=== PATIENT | female | born 1980 | race Caucasian/White ===

== ENCOUNTER 2024-12-15 06:06 | Observation (INO) ==
--- NOTE | 2024-11-29 09:02 | PAT Medication Instructions ---
Medication Instructions Date of Service November 29, 2024 Home Medications albuterol sulfate 0.63 mg/3 mL solution for nebulization 0.63 mg inhalation Q4H PRN sob albuterol sulfate 90 mcg/actuation aerosol inhaler (Ventolin HFA) 2 puff inhalation QID PRN sob fexofenadine 180 mg tablet 180 mg PO HS hydrochlorothiazide 25 mg tablet 25 mg PO QAM losartan 100 mg tablet 100 mg PO QAM megestrol 40 mg tablet 40 mg PO TID montelukast 10 mg tablet (Singulair) 10 mg PO HS omeprazole 20 mg capsule,delayed release 20 mg PO QAM ASK your prescriber and surgeon megestrol 40 mg tablet 40 mg PO TID DO NOT take the morning of surgery hydrochlorothiazide 25 mg tablet 25 mg PO QAM losartan 100 mg tablet 100 mg PO QAM Take morning of surgery With a small sip of water, OTHERWISE NOTHING TO EAT OR DRINK AFTER MIDNIGHT: albuterol sulfate 0.63 mg/3 mL solution for nebulization 0.63 mg inhalation Q4H PRN sob (if needed) albuterol sulfate 90 mcg/actuation aerosol inhaler (Ventolin HFA) 2 puff inhalation QID PRN sob (use if needed; please bring rescue inhaler with you to hospital day of surgery if possible) omeprazole 20 mg capsule,delayed release 20 mg PO QAM Take evening before surgery albuterol sulfate 0.63 mg/3 mL solution for nebulization 0.63 mg inhalation Q4H PRN sob (if needed) albuterol sulfate 90 mcg/actuation aerosol inhaler (Ventolin HFA) 2 puff inhalation QID PRN sob (if needed) fexofenadine 180 mg tablet 180 mg PO HS montelukast 10 mg tablet (Singulair) 10 mg PO HS Other Notes If you have any questions please call us at [phone] or [phone] or [phone] or [phone]
--- NOTE | 2024-12-01 09:22 | Anesthesiology Consultation ---
Date of Service December 01, 2024 Assessment & Plan (1) Encounter for pre-operative examination: Chart Review Chart Review: Acceptable Risk for Surgery and Patient seen in Pre Admission Testing - Check BSG AM DOS - Check test AM DOS - Wipes not give at PAT appt 12/01/24- did speak with patient after appt and will mail wipes to use before and after Per [facility] appt on 12/01/24, no recent illness/disease exposures, illness related symptoms, or recent illness/disease positive tests. Will leave to surgeon's discretion if preop Covid testing needed Teaching & Discussion Pre-Anesthesia Teaching/Discussion Notes: Instructed NPO after midnight before surgery,except medications with 15 cc of water. Medication instructions provided according to the [facility] guidelines. History Surgery Operation Date: 12/15/24 07:00 Proposed Procedures p Robotic Assisted Total Laparoscopic Hysterectomy, Bilateral Salpingectomy and Cystoscopy - Ann Dye MD Height/Weight Height: 5 ft 3 in Weight: 156.4 kg Allergies Allergy/AdvReac Type Severity Reaction Status Date / Time fentanyl Allergy Severe burning Verified 11/28/24 14:26 sensation head to toe with nausea EYD Inhibitors Allergy Mild Cough Verified 11/28/24 14:26 Sulfa (Sulfonamide Allergy Unknown unsure of Verified 11/28/24 14:26 Antibiotics) reaction>mother allergic to sulfa Medications Home Medications Medication Instructions Recorded Confirmed Last Taken albuterol sulfate 0.63 mg/3 mL 0.63 mg inhalation Q4H PRN sob 11/28/24 11/28/24 Unknown solution for nebulization albuterol sulfate 90 mcg/actuation 2 puff inhalation QID PRN sob 11/28/24 11/28/24 Unknown aerosol inhaler (Ventolin HFA) fexofenadine 180 mg tablet 180 mg PO HS 11/28/24 11/28/24 Unknown hydrochlorothiazide 25 mg tablet 25 mg PO QAM 11/28/24 11/28/24 Unknown losartan 100 mg tablet 100 mg PO QAM 11/28/24 11/28/24 Unknown megestrol 40 mg tablet 40 mg PO TID 11/28/24 11/28/24 Unknown montelukast 10 mg tablet 10 mg PO HS 11/28/24 11/28/24 Unknown (Singulair) omeprazole 20 mg capsule,delayed 20 mg PO QAM 11/28/24 11/28/24 Unknown release loratadine 10 mg tablet (Claritin) 10 mg PO PM 12/01/24 12/01/24 Unknown Past Medical History Medical History Asthma exercised and allergy induced breathing stable currently (mild allergy symptoms recently) Depression no meds Environmental and seasonal allergies GERD (gastroesophageal reflux disease) Well controlled with medication H/O benign breast biopsy right (no anesthesia) Hypertension Osteoarthritis Prediabetes - Hgb A1C 7.1 on 11/08/24- was on Metformin and Ozempic in the past but has been without medications x months - Patient aware and will be working with PCP to get on medications (pt knows not to start Ozempic until after surgery) Sleep apnea cpap Exercise / Class Metabolic Activity II 4-5 Yardwork/Stairs/Walk up hill (one flight of stairs - no chest pain or SOB ) Past Family History Family History Other No family history of adverse response to anesthesia Past Surgical History Surgical History H/O nasal septoplasty History of carpal tunnel release right/left History of dilatation and curettage (2022) History of tooth extraction [place] teeth removed Past Anesthesia History No Hx of Anesthesia Complications (with exception of feeling hot and cold post op ) and No Family Hx of Anesthesia Complications History of PONV No Hx of PONV (only PONV with Fentanyl in the past ) and No Hx of Motion Sickness Social History Smoking Status: Current every day smoker Smoking cigarettes per day: 10 cig daily>advised Do You Dip or Chew Tobacco: No Hx Alcohol Use: No substance use type: does not use Review of Systems - Chronic cough- secondary to asthma - stable (feels secondary chronic post nasal drip) Patient denies chest pain, shortness of breath, dyspnea on exertion, wheezing, palpitations. No hx of seizures, stroke, CT. No hx of blood clots or blood transfusions Physical Exam Vital Signs VITALS BP 156/82 P 83 TEMP 98.2 SP02 98% RESP 16 Constitutional no acute distress ENMT Mouth: no TMJ clicking Thyromental Distance: > or= 3.5 Finger Breadths (3.5) Mallampati Class: I Missing side teeth Neck + short neck, + thick neck and + limited neck extension Respiratory normal respiratory effort; no respiratory distress Auscultation: lungs clear to auscultation bilaterally; no wheezes Cardiovascular Rate/Rhythm: regular rate and regular rhythm Heart Sounds: no murmur Vessels: no carotid bruit Musculoskeletal Spine: no pain with cervical ROM Extremities: extremities normal to inspection Psychiatric Orientation: alert Lab Results Anesthesia Preop Results Results Anesthesia Widget: WBC 9.45 K/ul (4.8-10.8) 12/01/24 Hgb 13.0 g/dl (12.0-16.0) 12/01/24 Hct 40.8 % (37.0-47.0) 12/01/24 Plt 253 K/uL (130-400) 12/01/24 Blood Type AB Positive 12/01/24 Antibody Screen NEGATIVE 12/01/24 Testing Laboratory Results 11/08/24= SODIUM: 143 POTASSIUM: 4.1 CHLORIDE: 106 CO2: 25 BUN: 14 CREATININE: 0.7 GLUCOSE: 109 HGB A1C: 7.1 Electrocardiogram Date: 12/01/24 Findings: + NSR @ (86bpm) Low voltage QRS Chest X-Ray Date: 09/26/24 Low lung volumes. No acute focal consolidation. No pulmonary edema. No pneumothorax or pleural effusion observed. Unremarkable cardiomediastinal silhouette. No acute osseous abnormality.
[2024-12-15] MEDS ORDERED: PROPOFOL IV EMULSION 10 MG/ML 20 ML VIAL IV ONE ×2 (06:32→06:42)
[2024-12-15] MEDS ORDERED: LIDOCAINE 2% 2 ML VIAL/AMP(20MG/ML) INFIL ONE (06:32)
[2024-12-15] MEDS ORDERED: ROCURONIUM BROMIDE 10 MG/ML 5 ML VIAL IV ONE ×2 (06:32→07:48)
[2024-12-15] MEDS ORDERED: MIDAZOLAM HCL 1 MG/ML 2ML VIAL ONE (06:32)
[2024-12-15] MEDS ORDERED: fentaNYL citrate PF 100 MCG/2 ML VIAL ONE (06:33)
[2024-12-15 06:35] LABS: Basophils # (auto) 0.03 K/uL (0.00-0.20); Basophils % (auto) 0.3 %; Eosinophils # (auto) 0.22 K/uL (0.00-0.50); Eosinophils % (auto) 1.9 %; Hematocrit (blood only) 41.1 % (37.0-47.0); Hemoglobin 13.2 g/dl (12.0-16.0); Immature Granulocytes # (auto) 0.07 K/uL (0.01-0.20); Immature Granulocytes % (auto) 0.6 %; Lymphocytes # (auto) 4.38 K/uL (1.20-3.40); Lymphocytes % (auto) 38.3 %; Mean Corpuscular Hemoglobin 26.8 pg (25.0-34.0); Mean Corpuscular Hgb Conc 32.1 g/dL (32.0-36.0); Mean Corpuscular Volume 83.5 fL (80.0-100.0); Mean Platelet Volume 10.4 fL (9.4-12.4); Monocytes # (auto) 0.48 K/uL (0.11-0.59); Monocytes % (auto) 4.2 %; Neutrophils # (auto) 6.27 K/uL (1.40-6.50); Neutrophils % (auto) 54.7 %; Platelet Count 267 K/uL (130-400); RDW Standard Deviation 39.2 fL (36.4-46.3); Red Blood Count 4.92 M/uL (4.20-5.40); White Blood Count 11.45 K/ul (4.8-10.8)
[2024-12-15] MEDS: LR 15ML/HR IV SCH (06:49)
[2024-12-15] MEDS: LACTATED RINGER'S 1,000 ML IV SCH (06:49)
[2024-12-15] MEDS ORDERED: ONDANSETRON INJ 2 MG/ML 2 ML VIAL IV PRN (06:51)
[2024-12-15] MEDS ORDERED: ATROPINE SULFATE 0.1 MG/ML 10ML SYR IV PRN (06:51)
[2024-12-15] MEDS ORDERED: PROMETHAZINE HCL 6.25 MG in SODIUM CHLORIDE 0.9% 50 ML IV PRN (06:51)
[2024-12-15] MEDS ORDERED: HYDROmorphone INJ 2 MG/ML SYR/VIAL ONE (06:52)
[2024-12-15 06:55] LABS: Potassium 3.8 mmol/L (3.5-5.1)
--- NOTE | 2024-12-15 07:19 | History & Physical Bridge Note ---
Date of Service December 15, 2024 History & Physical Bridge Note I have examined the patient, reviewed the History & Physical and in the interval since the performance of the History & Physical I have noted the following changes of clinical significance: no changes noted
[2024-12-15] MEDS: ceFAZolin 3000MG 3,000 MG/72.5 ML BAG IV SCH (07:26)
[2024-12-15] MEDS ORDERED: DEXAMETHASONE SOD INJ 4 MG/ML VIAL ONE (07:48)
[2024-12-15] MEDS ORDERED: ONDANSETRON INJ 2 MG/ML 2 ML VIAL ONE (07:48)
[2024-12-15] MEDS ORDERED: DROPERIDOL 5 MG/2 ML VIAL ONE (07:49)
[2024-12-15] MEDS: metroNIDAZOLE 500 MG/100 ML BAG IV STA (08:19)
[2024-12-15] MEDS: BUPIVACAINE 0.5 % 5 MG/1 ML MPF 30ML VIAL ONE (09:00)
[2024-12-15] MEDS: TISSEEL FIBRIN SEALANT 10ML TOP ONE (09:00)
[2024-12-15] MEDS ORDERED: SUGAMMADEX SODIUM 200 MG/2 ML VIAL IV ONE (09:04)
[2024-12-15] MEDS: VASOPRESSIN 20 UNIT/ML VIAL ONE (09:18)
--- NOTE | 2024-12-15 09:32 | Post Operative Brief Note ---
Immediate Post Op Note Date of Surgery December 15, 2024 Pre & Post Diagnosis Operation Date: 12/15/24 07:30 Pre-Op Diagnosis: Endometrial Hyperplasia Post-Op Diagnosis: Endometrial Hyperplasia I identified the patient and participated in the time-out.: Yes Procedure Operation Date: 12/15/24 07:30 Actual Procedures p Robotic Assisted Total Laparoscopic Hysterectomy, Bilateral Salpingectomy, and Cystoscopy(Not Applicable) - Ann Dye MD Surgeon Ann Dye MD Director Hris ELISA Colon- Estimated Blood Loss 10 Findings Consistent with Post-Op Diagnosis Drains Montano Catheter (placed at start of case, to be removed at end of case 250mL)
--- NOTE | 2024-12-15 09:38 | Operative Report ---
Post Operative Report Pre & Post Diagnosis Operation Date: 12/15/24 07:30 Pre-Op Diagnosis: Endometrial Hyperplasia, Uterine fibroid Post-Op Diagnosis: Endometrial Hyperplasia, Uterine fibroid I identified the patient and participated in the time-out.: Yes Procedure Operation Date: 12/15/24 07:30 Actual Procedures p Robotic Assisted Total Laparoscopic Hysterectomy, Bilateral Salpingectomy, and Cystoscopy(Not Applicable) - Ann Dye MD Surgeon Ann Dye MD Bulb Brander ELISA Colon- Estimated Blood Loss 10 Findings See Below 1. 11 cm anteverted with uterus with a 10 cm posterior uterine fibroid 2. Normal appearing fallopian tubes and ovaries bilaterally 3. Anterior and posterior cul-de-sacs without lesions or adhesions 4. Lizbeth appearing liver edge 5. Appendix not visualized 6. On cystoscopy, normal appearing bladder dome which was free of suture or lesions 7. Brisk bilateral efflux of urine by the ureteral orifices visualized Fluids See Anesthesia Report Specimens Uterus (with fibroid), cervix, and bilateral fallopian tubes Drains Cano catheter removed at the end of the procedure. 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 Patient also with a enlarged fibroid uterus. Patient desires to proceed with a hysterectomy. Description of Procedure Under GA in the dorsal lithotomy position, the patient was prepped and draped in the usual sterile fashion. Beginning at the vagina, a cano catheter was inserted under sterile conditions and left in situ for the remainder of the case. A weighted speculum was then placed in the vagina and with the help of a right angle retractor the cervix was visualized and grasped anteriorly with a single tooth tenaculum.The uterus was sounded to11cm with a uterine sound.The cervical os was dilated up. An Advincula uterine manipulator was inserted. The weighted speculum was then removed. Attention was then turned to the abdomen. 0.5% marcaine solution was used for infiltration of all port sites. Beginning in the subumbilical area, the skin was first infiltrated with ~ 2 cc of themarcaine solution, then a8mm incision was made through the skin with a #11 blade. Direct entry with the robotic 8 mm trocar, sleeve, and 5 mm laparoscope was made into the peritoneal cavity.The opening pressure was <8 mmHg. The peritoneal cavity was insufflated with CO2 gas to a maximum pressure of 20 mmHg. Examination of the peritoneal cavity revealed no signs of injury from entry and the above notedanatomical structures. The patient was then placed in steep Trendelenburg and two [id number] robotictrocars were placed in a horizontal fashion.The interior design assistant port was placed in the RUQ with a 5 mm trocar.All trocars placed instandard technique, taking care to avoid the epigastric vessels. All trocars were placed under direct visualization with no inadvertent damage to underlying structures. The uterus was upheld from below and revealed a normal uterus, fallopian tubes andovaries. The [employer] robot was docked. Beginning on the left side, the fallopian tube was lifted towards the anterior abdominal wall to expose the mesosalpinx. Working from distal to proximal, the mesosalpinx was sequentially, clamped, ligated, and cut using the monopolar leelee and bipolar forceps hugging adjacent to tube from distal to proximal in the direction of the cornua. Once the cornua was reached the tube was ligated and cut and left freely hanging from the uterus to be removed as one specimen. Following this, the utero-ovarian ligament was clamped, sealed, and cut. The ovarian pedicle was the inspected to ensure there was no bleeding from the edges of mesosalpinx or from the stump of the utero-ovarian ligament. Attention was then turned to the other side. The same process was repeated on the right, sequentially clamping, ligating, and cutting the mesosalpinx being sure to not injure the adjacent ovarian tissue or other surrounding structures. The round ligament was then ligated and cut. Following this, the anterior leaf of the broad ligament was then taken down on the right side, dissecting down towards the peritoneal reflection at the base of the bladder and adjacent to the cervix. The same process was then repeated on the left side such that both sides met and the anterior leaflet had been appropriately skeletonized. Care was taken on both sides to avoid injuring the ovaries and to ensure the ureters were well visualized bilaterally. Once the bladder was appropriately dissected free from the lower anterior uterine segment and the tissues skeletonized, the uterine arteries were bilaterally clamped and ligated. Pedicles were checked and hemostatic. At the level of the ofthe uterine manipulator, the vaginal vault was incised circumferentially withthemonopolarshears. The uterus (with fibroid), cervix,and bilateralfallopian tubes weredelivered through the vagina using an 11 blade in a coring technique. All specimens were sent to pathology. Avaginal occluderwas then placed into the vagina to form a pneumatic seal and all the pedicles as well as the cuff edges were examined. Hemostasis was appreciated. The vaginal vault was then closed with a V-Loc barbed stitch being sure to avoid the bladder lateral pedicles. Following vault closure, an inspection of all areas was made to ensure hemostasis.Tisseal was placed along the vaginal cuffand adnexal regions. Hemostasiswasagain appreciated. The robot was undocked.All ports were removed under direct visualization and hemostasis noted. All the incision sites were then closed with 4-0 monocryl sutures in a subcuticular fashion and dermabond. The vaginal occluder and cano catheter were removed without incident. Cystoscopy was then performed. Normal appearing bladder dome which was free of suture or lesions was visualized. There was brisk bilateral efflux of urine by the ureteral orifices visualized. The bladder was drained and the cystoscope was removed without difficulty. At the end of the procedure, all sponges, instruments, and sharps were counted and correct. Estimated blood loss was 10ml. The patient was taken to recovery in stable condition. My Bulb Brander was necessary throughout the procedure for uterine manipulation, retraction, handling of the robot and robotic instruments to ensure adequate visualization, gentle tissue manipulation, and hemostasis. I attest to the content of the Intraoperative Record and any orders documented therein. Any exceptions are noted below.
[2024-12-15] MEDS: HYDROmorphone INJ 1 MG/ML SYRINGE IV PRN (10:05)
--- NOTE | 2024-12-15 10:34 | Anesthesiology Progress Note ---
Date of Service December 15, 2024 Anesthesia Post Procedure Vital Signs Vital Signs: Temp Pulse Pulse Resp BP Pulse Ox O2 Del Method 12/15/24 10:25 98 H 14 123/70 96 Oxymask 12/15/24 10:15 36.7 C 100 H 21 134/74 92 Oxymask 12/15/24 10:05 108 H 21 163/100 H 96 Oxymask 12/15/24 09:55 99 H 14 154/97 H 98 Oxymask 12/15/24 09:45 105 H 15 180/108 H 100 Oxymask 12/15/24 09:35 113 H 18 146/87 H 100 Oxymask 12/15/24 09:29 36.8 C 108 H 19 165/104 H 96 Oxymask 12/15/24 06:34 Room Air 12/15/24 06:20 36.8 C 92 H 22 167/86 H 96 Room Air O2 Flow Rate 12/15/24 10:25 2 12/15/24 10:15 2 12/15/24 10:05 2 12/15/24 09:55 5 12/15/24 09:45 5 12/15/24 09:35 5 12/15/24 09:29 5 12/15/24 06:34 12/15/24 06:20 Pain Intensity Abdomen: Pain Intensity: 4 Transfer of Care Handoff Completed per policy Notes Mental Status: alert / awake / arousable Patient Amnestic to Procedure: Yes Nausea / Vomiting: adequately controlled Pain: adequately controlled Airway Patency, RR, SpO2: stable & adequate BP & HR: stable & adequate Hydration State: stable & adequate Anesthetic Complications: no major complications apparent
[2024-12-15] MEDS ORDERED: ALBUTEROL HFA 8 GM INHALER INH PRN (11:44)
[2024-12-15] MEDS ORDERED: oxyCODONE HCL IR 5 MG TAB (IMMEDIATE RELEASE) PO PRN (11:44)
[2024-12-15] MEDS ORDERED: ALBUTEROL 0.083% NEBU SOLN 3 ML VIAL INH PRN (11:47)
[2024-12-15] MEDS ORDERED: Nursing to Pharmacy Communication SCH (12:00)
[2024-12-15] MEDS: SIMETHICONE 80 MG CHEW PO SCH (12:13)
[2024-12-15] MEDS: ACETAMINOPHEN 325 MG TAB PO SCH (12:13)
[2024-12-15] MEDS: IBUPROFEN 600 MG TAB PO SCH (12:14)
--- OUTSIDE RECORDS SUMMARY | 2024-12-15 12:25 | External Medical Summary | Summary of Care ---
Author Name Unknown Organization [facility] Address [address] [place] [address] Phone [phone] Care Team Providers Care Sales And Retail Management Recruiter Name Role Phone Cuco Smalls Primary Care Provider Encounter Details Date Type Department Care Team (Late st Contact Info) Description 12/01/2024 Orders Only Gynecology/Obstetrics [facility] [address] [place] [id number] Ann Dye MD [address] [place] [phone] Allergies Active Allergy Reactions Criticality Noted Date Comments Ramon Inhibitors Cough 06/15/2017 Fentanyl 07/12/2024 Sulfa Antibiotics 06/10/1999 Patient is unsure if she is allergic, mother is allergic documented as of this encounter (statuses as of 12/01/2024) Medications Albuterol Sulfate HFA 108 (90 Base) MCG/ACT Inhalation Aerosol SolutionIndicatio ns:Asthma, allergic, mild persistent, with acute exacerbation Inhale 2 Puffs by mouth 4 times a day. 18 g 3 Active Triamcinolone Acetonide 0.1 % External Ointment (Aristocort) Apply topically to affected area 2 times a day. To affected area for up to 2 weeks 30 g 2 3 Active CPAP every night at bedtime. Active Ventolin HFA 108 (90 Base) MCG/ACT Inhalation Aerosol SolutionIndicatio ns:Viral URI with cough Inhale 2 Puffs by mouth every 4 hours as needed for Wheezing or Shortness of Breath. 18 g 4 Active Fluocinonide 0.05 % External SolutionIndicatio ns:Psoriasis Apply to scalp and ears twice daily as needed for Psoriasis flares 60 mL 2 4 Active hydroCHLOROthiazi de 25 MG Oral Tablet (Hydrodiuril)Jody cations:HTN, goal below 130/80 TAKE 1 TABLET BY MOUTH EVERY DAY 90 Tablet 3 4 Active Losartan Potassium 100 MG Oral Tablet (Cozaar)Indicatio ns:HTN, goal below 130/80 TAKE 1 TABLET BY MOUTH EVERY DAY 90 Tablet 3 4 Active Naproxen 500 MG Oral Tablet (Naprosyn)Indicat ions:Muscle spasm of back Take 1 Tablet by mouth 2 times a day as needed for Pain, Moderate. With food. 60 Tablet 2 4 Active Ipratropium-Albut damian 0.5-2.5 (3) MG/3ML Inhalation Solution (Duoneb) INHALE 3 ML VIA NEBULIZER 4 TIMES A DAY. 360 mL 5 Active Ipratropium-Albut damian 0.5-2.5 (3) MG/3ML Inhalation Solution (Duoneb) INHALE 3 ML VIA NEBULIZER 4 TIMES A DAY NEEDED 1080 mL 5 Active Omeprazole 20 MG Oral Capsule Delayed Release (PriLOSEC)Indicat ions:Asthma, allergic TAKE 1 CAPSULE BY MOUTH EVERY DAY 90 Capsule 1 5 Active Wegovy 0.25 MG/0.5ML Subcutaneous Solution Auto-injector (Semaglutide-[facility])Indica tions:Body mass index (BMI) of 50.0 to 59.9 in adult ([facility]) Inject 0.5 mg under the skin once a week. 3 mL 3 5 Active Megestrol Acetate 40 MG Oral Tablet (Megace) Take 1 Tablet by mouth in the morning and 1 Tablet at noon and 1 Tablet in the evening and 1 Tablet before bedtime. 120 Tablet 1 5 Active Montelukast Sodium 10 MG Oral Tablet (Singulair) Take 1 Tablet by mouth in the morning. 90 Tablet 1 5 Active Ibuprofen 600 MG Oral Tablet (Motrin) Take 1 Tablet by mouth every 6 hours as needed (pain). With food. 30 Tablet 1 5 Active Acetaminophen 325 MG Oral Tablet (Tylenol) Take 2 Tablets by mouth every 6 hours as needed for Pain, Moderate. 30 Tablet 1 5 Active Docusate Sodium 100 MG Oral Capsule (Colace) Take 1 Capsule by mouth in the morning and 1 Capsule before bedtime. 60 Capsule 1 5 Active Simethicone 80 MG Oral Tablet Chewable (Mylicon) Take 1 Tablet by mouth every 6 hours as needed for Gas. 30 Tablet 5 Active oxyCODONE-Acetami nophen 5-325 MG Oral Tablet (Percocet) Take 1 Tablet by mouth every 4 hours as needed for Pain, Severe. 10 Tablet 5 Active documented as of this encounter (statuses as of 12/01/2024) Active Problems Problem Noted Date Diagnosed Date Uterine leiomyoma 10/13/2023 Pelvic pressure in female 10/13/2023 Abnormal uterine bleeding (AUB) 12/09/2022 Endometrial polyp 12/09/2022 Family history of colon cancer 12/09/2021 Need for mcnzwssqzl-vtisyei-ubngpbhjy (Tdap) vac cine 02/12/2021 Body mass index (BMI) of 50.0 to 59.9 in adult 0 10/24/2019 Overview: Per Obesity protocol - Per Obesity protocol - - Current moderate episode of major depressive disorder without prior episode 10/10/2019 Morbid obesity due to excess calories 10/10/2019 LORA (generalized anxiety disorder) 10/10/2019 Asthma, allergic, mild persistent, with acute ex acerbation 10/10/2019 Sebopsoriasis 10/10/2019 HTN, goal below 130/80 10/10/2019 Prediabetes 02/22/2018 Overview: Per Prediabetes protocol #1 Mild persistent asthma without complication 04/13 FATOU (obstructive sleep apnea) 04/10/2016 Viral warts 03/09/2011 Overview (06/14/2017): ICD-10 update of inactive term VITAMIN D DEFICIENCY - 17 12/23/2010 Asthma, mild intermittent 09/10/1999 Allergic rhinitis 09/10/1999 Major depressive disorder Overview (07/06/2017): ICD-10 update of inactive term documented as of this encounter (statuses as of 12/01/2024) Resolved Problems Problem Noted Date Diagnosed Date Resolved Date Prediabetes 03/24/2021 12/24/2022 Overview: Per Prediabetes protocol Body mass index (BMI) of 60. 0 to 69.9 in adult 08/21/2019 10/25/2019 Overview: Per Obesity protocol - - Body mass index (BMI) of 50. 0 to 59.9 in adult 01/23/2019 08/24/2019 Overview: Per Obesity protocol #1 - BMI 60.0-69.9, adult 06/14/2017 019 Overview: Per Obesity protocol #1 Obesity, morbid (more than 1 00 lbs over ideal weight or BMI > 40) 05/31/2012 06/17/2017 Overview: Per Obesity protocol #1 Strep sore throat 04/08/2011 10/30/2011 Acute sinusitis 09/10/2010 10/30/2011 Obesity, morbid (more than 1 00 lbs over ideal weight or BMI > 40) 02/25/2010 05/31/2012 Overview (12/02/2015): Per Obesity Protocol, #19 ICD-10 update of inactive term ADVANCE DIRECTIVE INFORMATION 11/23/2006 07/17/2024 Overview (11/23/2006): Information offered-patient declined. Unspecified viral infection, in conditions classified elsewhere and of unspecified site 09/10/1999 08/08/2007 documented as of this encounter (statuses as of 12/01/2024) Immunizations Name Administration Dates Next Due COVID-19 mRNA, LNP-s, No Pre serve, 2-Dose Series (Moderna) 10/10/2021,09/09/2021 PPD 05/25/2015, 3,11/07/2010,11/07,11/17/2007,10/28/2005 Pneumococcal Polysaccharide PPV23 (Pneumovax) 01/01/2012 Seasonal Influenza Vac., MDV , IM, 0.5 mL (Fluzone) 08/13/2017,09/15/2013,05/31/2012,05/21,07/04/2007 Seasonal Influenza, PF, 6 M & above, IM , (FluLaval or Fluzone) 06/13/2020,07/14/2019,08/22/2018 Seasonal Influenza, Quadriva lent, No Preserve, IM 07/03/2016,07/02/2015(Deferred: Patient Refused - Patient left before receiving vaccine.) TDAP (age 10 and older)(Boostrix) 02/12/2021 TDAP, Age 7 and older, IM (Adacel) 11/07/2010 documented as of this encounter Social History Tobacco Use Types Packs/Day Years Used Date Smoking Tobacco: Every Day Cigarettes 0.5 6 Smokeless Tobacco: Never Alcohol Use Standard Drinks/Week Comments Not Currently 0 (1 standard drink = 0.6 oz pur e alcohol) rare PHQ-2 Answer Date Recorded PHQ Adult Total Score 5 09/19/2024 Hunger Vital Sign Answer Date Recorded Within the past 12 months, y ou worried that your food would run out before you got the money to buy more. Never true 09/19/19 25 Within the past 12 months, t he food you bought just didn't last and you didn't have money to get more. Never true 09/19/2024 Childcare Answer Date Recorded Do you feel overwhelmed with taking care of a child, family member or friend? Yes 09/19/2024 Does your family need help f inding childcare? (Household - for ages 0-17 years) Not on file 09/19/2024 Clothing Answer Date Recorded Have you been unable to get clothing when it was really needed? No 09/19/2024 Is your family able to get c lothes or diapers when needed? (Household - for ages 0-17 years) Not on file 09/19/2024 Personal Safety Answer Date Recorded Do you feel unsafe or have concerns for your saf ety? No 09/19/2024 Do you have concerns for you r family's safety? (Household - for ages 0-17 years) Not on file 09/19/2024 Utilities Answer Date Recorded Do you have trouble paying y our heating, water, or electric bill? No 09/19/2024 Is your family able to pay t he heat, water, or electric bill? (Household - for ages 0-17 years) Not on file 09/19/2024 Does your family have access to good internet? (Household - for ages 0-17 years) Not on file 09/19/2024 Employment Status Answer Date Recorded Are you unemployed or without regular income? No 09/19/2024 Does the household have a re gular source of income? (Household - for ages 0-17 years) Not on file 09/19/2024 Social Connections Answer Date Recorded How often do you feel lonely or isolated from th ose around you? Rarely 09/19/2024 Financial Resource Strain Answer Date R ecorded Do you have any trouble payi ng for your medications, or do you think you might in the future? No 09/19/2024 Does your family have troubl e paying for medicine? (Household - for ages 0-17 years) Not on file 09/19/2024 Transportation Needs Answer Date Record ed Do you have trouble getting a ride to medical visits or work? (Adult - for ages 18 years and over) Not on file 09/19/2024 Does your family have a hard time getting a ride to doctors visits? (Household - for ages 0-17 years) Not on file 09/19/2024 Has lack of transportation k ept you from medical appointments, meetings, work, or from getting things needed for daily living? Check all that apply. No 09/19/2024 Do you (or your family) have trouble finding or paying for a ride (transportation)? (Household - for ages 0-17 years) Not on file 09/19/2024 Housing Stability Answer Date Recorded Do you currently live in a s helter or have no steady place to sleep at night? No 09/19/2024 Do you think you are at risk of becoming homeless? (Adult - for ages 18 years and over) Not on file 09/19/2024 Does your family worry about paying for your home or becoming homeless? (Household - for ages 0-17 years) Not on file 0 09/19/2024 Are you homeless or worried that you might be in the future? No 09/19/2024 Are you (or your family) sagar eless or worried that you might be in the future? (Household - for ages 0-17 years) Not on file Food Insecurity Answer Date Recorded Do you need food for this week? No 09/19/2024 Are you able to get enough f ood for your family? (Household - for ages 0-17 years) Not on file 09/19/2024 Does your family need food t his week? (Household - for ages 0-17 years) Not on file 09/19/2024 Do you always have enough fo od for your family? (Household - for ages 0-17 years) Not on file 09/19/2024 Food Insecurity Answer Date Recorded Within the past 12 months, y ou worried that your food would run out before you got the money to buy more. Never true 09/19/19 25 Within the past 12 months, t he food you bought just didn't last and you didn't have money to get more. Never true 09/19/2024 Do you need food for this week? 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 file Not on file Not on file documented as of this encounter Plan of Treatment Upcoming Encounters Date Type Department Care Team (Late st Contact Info) Description 01/03/2025 9:15 AM EDT Office Visit Gynecology/Obstetrics [facility] [address] [phone] Ann Dye MD [address] [phone] 05/11/2025 12:00 PM EDT Office Visit Sleep Disorders Ctr [facility] [address] [place] [phone] Harriet Macias CRNP [address] [place] [phone] 05/24/2025 9:40 AM EDT Office Visit Family Practice [facility] [address] [place] [phone] Cuco Smalls DO [address] [place] [phone] Health Maintenance Due Date Last Done Comments DISCUSS TOBACCO CESSATION (REFER TO SMARTSET #0108) 1981 HPV/Co-Test 2011 Pap Smear 05/05/2024 05/05/2021, 11/11, 10/02/2014, Additional history exists Cervical Cancer Screening 06/07/2025 Po stponed from 05/05/2024 (Patient Declined After Education) Pneumococcal Vaccine: Pediatrics (0 to 5 Years) and At-Risk Patients (6 to 18 Years and 19+ Years) (2 of 2 - PCV) 06/07/2025 01/01/2012 Postponed from 12/31/2012 (Patient Declined After Education) Mammogram 07/24/2025 07/24/2024, 07/15, 07/23/2023, Additional history exists Depression Monitoring 09/19/2025 09/19/2024 GFR 11/08/2025 11/08/2024, 02/12, 08/30/2023, Additional history exists HbA1c 11/08/2025 11/08/2024, 02/12, 08/30/2023, Additional history exists Albumin/Creatinine Ratio 11/08/2027 025, 03/03/2024, 08/30/2023, Additional history exists Lipid Panel 11/08/2029 11/08/2024, 02/12, 08/30/2023, Additional history exists DTap/Tdap Vaccines (11 - Td or Tdap) 02/12/2031 02/12/2021, 11/07/2010, 10/25/2004, Additional history exists Hepatitis B Vaccine Completed 01/04/1997, 08/03/1996, 07/06/1996 MENINGOCOCCAL (MENACTRA/MENVEO) Aged Out 04/28/2000 No longer eligible based on patient's age to complete this topic COVID-19 Vaccine Discontinued 10/10/2021, 09/09/2021 Influenza Vaccine (FLU shot) Completed 06/22/2024, 06/24/2023, 06/01/2022, Additional history exists HPV (Gardasil) Vaccine Aged Out No lo nger eligible based on patient's age to complete this topic Meningitis B Vaccine (Bexsero/Trumemba) Aged Out No longer eligible based on patient's age to complete this topic documented as of this encounter Medical Devices Not on filedocumented as of this encounter Procedures Procedure Name Priority Date/Time Associated Diagnosis Comments CHEMISTRY-OUTSIDE Routine 12/01/2024 documented in this encounter Results * CHEMISTRY-OUTSIDE (12/01/2024) Not all results display below - see scan for full detail OUTSIDE LAB (SEE SCANNED REPORT) Comment:SEE SCAN: CBCD, TYPE & SCREEN CREATININE OUTSIDE L AB (SEE SCANNED REPORT) EGFR OUTSIDE LA B (SEE SCANNED REPORT) POTASSIUM OUTSIDE LA B (SEE SCANNED REPORT) GLUCOSE OUTSIDE LA B (SEE SCANNED REPORT) HOURS FASTING OUTSID E LAB (SEE SCANNED REPORT) TRIGLYCERIDES-OUT SIDE LAB OUTSIDE LAB (SEE SCANNED REPORT) CHOLESTEROL-OUTSI DE LAB OUTSIDE LAB (SEE SCANNED REPORT) HDL-OUTSIDE LAB OUTS RADHA LAB (SEE SCANNED REPORT) CHOL/HDL RATIO-OUTSIDE LAB OUTSIDE LA B (SEE SCANNED REPORT) LDL (CALCULATED)-OUTS RADHA LAB OUTSIDE LAB (SEE SCANNED REPORT) LDL (DIRECT MEASURE)-OUTSIDE LAB OUTSIDE LAB (SEE SCANNED REPORT) HEMOGLOBIN, [id number] LAB OUTSIDE LAB (SEE SCANNED REPORT) PHOSPHORUS-OUTSID E LAB OUTSIDE LAB (SEE SCANNED REPORT) PTH-OUTSIDE LAB OUTS RADHA LAB (SEE SCANNED REPORT) MICROALBUMIN RATIO-OUTSIDE LAB OUTSIDE LA B (SEE SCANNED REPORT) PROTEIN, UA-OUTSIDE LAB OUTSIDE LAB (SEE SCANNED REPORT) HGB 13.0 12.0 - 16.0 G/DL OUTSIDE LAB (SEE SCANNED REPORT) 12/01/2024 us Ann Dye MD LABORATORY Final Resu lt OUTSIDE LAB (SEE SCANNED REPORT) documented in this encounter Advance Directives * Full Code (Latest Code Status on File) Date Activated Date Inactivated Comments 12/09/2022 4:16 PM 12/09/2022 11:35 PM This order reflects the patients wishes and were consensually agreed upon. Question Answer Comments Discussion of Advance Direct candis occurred with: Not Discussed due to patient's condition * Full Code Date Activated Date Inactivated Comments 12/09/2022 4:16 PM 12/09/2022 4:16 PM This order r eflects the patients wishes and were consensually agreed upon. Question Answer Comments Discussion of Advance Direct candis occurred with: Not Discussed due to patient's condition * Full Code Date Activated Date Inactivated Comments 03/10/2018 1:32 PM 03/11/2018 3:51 PM This order r eflects the patients wishes and were consensually agreed upon. Question Answer Comments Discussion of Advance Directives occurred with: Not Discussed Does the patient have a Living Will? No Does the patient have Health Care Power of Attor falguni? No Care Teams Sales And Retail Management Recruiter Relationship Specialty Start Date End Date Cuco Smalls DO [facility] [address] [place] [phone] PCP - General Family Medicine 10/03/19 documented as of this encounter
[2024-12-15] MEDS: ONDANSETRON INJ 2 MG/ML 2 ML VIAL IV PRN (12:36)
[2024-12-15] MEDS: LOSARTAN POTASSIUM 50 MG TAB PO SCH (12:39)
[2024-12-15] MEDS: hydroCHLOROthiazide 25 MG TAB PO SCH (12:40)
--- NOTE | 2024-12-15 14:39 | Anesthesiology Progress Note ---
Date of Service December 15, 2024 Anesthesia Post Procedure Vital Signs Vital Signs: Temp Pulse Pulse Resp BP Pulse Ox O2 Del Method 12/15/24 11:05 36.7 C 97 H 18 143/101 H 92 Nasal Cannula 12/15/24 10:35 37.2 C 99 H 18 153/99 H 93 Nasal Cannula 12/15/24 10:25 98 H 14 123/70 96 Oxymask 12/15/24 10:15 36.7 C 100 H 21 134/74 92 Oxymask 12/15/24 10:05 108 H 21 163/100 H 96 Oxymask 12/15/24 09:55 99 H 14 154/97 H 98 Oxymask 12/15/24 09:45 105 H 15 180/108 H 100 Oxymask 12/15/24 09:35 113 H 18 146/87 H 100 Oxymask 12/15/24 09:29 36.8 C 108 H 19 165/104 H 96 Oxymask 12/15/24 06:34 Room Air 12/15/24 06:20 36.8 C 92 H 22 167/86 H 96 Room Air O2 Flow Rate 12/15/24 11:05 2 12/15/24 10:35 2 12/15/24 10:25 2 12/15/24 10:15 2 12/15/24 10:05 2 12/15/24 09:55 5 12/15/24 09:45 5 12/15/24 09:35 5 12/15/24 09:29 5 12/15/24 06:34 12/15/24 06:20 Pain Intensity Abdomen: Pain Intensity: 4 Transfer of Care Handoff Completed per policy Notes Mental Status: alert / awake / arousable Patient Amnestic to Procedure: Yes Nausea / Vomiting: adequately controlled Pain: adequately controlled Airway Patency, RR, SpO2: stable & adequate BP & HR: stable & adequate Hydration State: stable & adequate Anesthetic Complications: no major complications apparent
[2024-12-15] MEDS: LORATADINE 10 MG TAB PO SCH (19:13)
[2024-12-15] MEDS: MONTELUKAST SODIUM 10 MG TABLET PO SCH (19:13)
[2024-12-15] MEDS: DOCUSATE SODIUM 100 MG CAP PO SCH (20:18)
--- OUTSIDE RECORDS SUMMARY | 2024-12-15 22:30 | External Medical Summary | Summary of Care ---
Author Name Unknown Organization [facility] Address [address] [place] [address] Phone [phone] Care Team Providers Care Marine Pipefitter Helper Name Role Phone Cuco Smalls Primary Care Provider Encounter Details Date Type Department Care Team (Late st Contact Info) Description 12/15/2024 Orders Only Gynecology/Obstetrics [facility] [address] [place] [phone] Ann Dye MD [address] [place] [phone] Allergies Active Allergy Reactions Criticality Noted Date Comments Ramon Inhibitors Cough 06/15/2017 Fentanyl 07/12/2024 Sulfa Antibiotics 06/10/1999 Patient is unsure if she is allergic, mother is allergic documented as of this encounter (statuses as of 12/15/2024) Medications Albuterol Sulfate HFA 108 (90 Base) [...] EVERY DAY 90 Capsule 1 5 Active Megestrol Acetate 40 MG Oral [...] for Pain, Severe. 10 Tablet 5 Active Mounjaro 2.5 MG/0.5ML Subcutaneous Solution Auto-injector (Tirzepatide)Jody cations:Body mass index (BMI) of 50.0 to 59.9 in adult (HCC),Type 2 diabetes mellitus with chronic kidney disease on chronic dialysis, without long-term current use of insulin ([facility]) Inject 2.5 mg under the skin once a week. 2 mL 11 5 12/05/19 26 Active documented as of this encounter (statuses as of 12/15/2024) Active Problems Problem Noted Date Diagnosed Date Uterine leiomyoma 10/13/2023 Pelvic pressure in female 10/13/2023 Abnormal uterine bleeding (AUB) 12/09/2022 Endometrial polyp 12/09/2022 Family history of colon cancer 12/09/2021 Need for itlwesahzq-vifvqps-zrepxemgo (Tdap) vac cine 02/12/2021 Body mass index [...] as of this encounter (statuses as of 12/15/2024) Resolved Problems Problem Noted Date Diagnosed Date [...] as of this encounter (statuses as of 12/15/2024) Immunizations Name Administration Dates Next Due COVID-19 [...] No 09/19/2024 Does the household have a [facility]? (Household - for ages [...] 01/03/2025 9:15 AM EDT [facility] [address] [place] [phone] Ann Dye MD [address] [place] [phone] 05/11/2025 12:00 PM EDT Office Visit Sleep Disorders Ctr [facility] [address] [place] [phone] Harriet Macias CRNP [address] [place] [phone] 05/24/2025 9:40 AM EDT Office Visit Family Practice [facility] [address] [place] [phone] Cuco Smalls DO [address] [place] [phone] Health Maintenance Due Date Last Done Comments DISCUSS TOBACCO CESSATION (REFER TO SMARTSET #3681) 1981 HPV/Co-Test 2011 Pap Smear 05/05/2024 05/05/2021, [...] Additional history exists Lipid Panel 11/08/2029 11/08/2024, 06/09/2023, 08/30/2023, Additional history exists DTap/Tdap Vaccines (11 [...] Priority Date/Time Associated Diagnosis Comments CHEMISTRY-OUTSIDE Routine 12/15/2024 documented in this encounter Results * CHEMISTRY-OUTSIDE (12/15/2024) Not all results display below - see scan for full detail OUTSIDE LAB (SEE SCANNED REPORT) Comment:SEE SCAN: LYTES, CBC D, BSG, TYPE&SCREEN CREATININE OUTSIDE L AB (SEE SCANNED REPORT) EGFR OUTSIDE LA B (SEE SCANNED REPORT) POTASSIUM 3.8 3.5 - 5.1 MMOL/L OUTSIDE LAB (SEE SCANNED REPORT) GLUCOSE OUTSIDE LA B [...] LAB OUTSIDE LAB (SEE SCANNED REPORT) HEMOGLOBIN, [id number] LAB OUTSIDE LAB (SEE SCANNED REPORT) PHOSPHORUS-OUTSID E LAB OUTSIDE LAB (SEE SCANNED REPORT) PTH-OUTSIDE LAB OUTS RADHA LAB (SEE SCANNED REPORT) MICROALBUMIN RATIO-OUTSIDE LAB OUTSIDE LA B (SEE SCANNED REPORT) PROTEIN, UA-OUTSIDE LAB OUTSIDE LAB (SEE SCANNED REPORT) HGB 13.2 12.0 - 16.0 G/DL OUTSIDE LAB (SEE SCANNED REPORT) 12/15/2024 us History Per Patient LABORATORY Final Result OUTSIDE LAB (SEE SCANNED REPORT) documented in [...] Power of Attor falguni? No Care Teams Marine Pipefitter Helper Relationship Specialty Start Date End Date Cuco Smalls DO [address] [place] [phone] PCP - General Family Medicine 10/03/19 documented as of this encounter
[2024-12-16 03:00] VITALS: TEMP 98.4
--- NOTE | 2024-12-16 03:00 | Gynecologic Progress Note ---
Date of Service December 16, 2024 Assessment & Plan Admission and Anticipated Discharge Date Admission Date: December 15, 2024 Subjective Postop day # 1 Patient is seen and examined Feels well, no complaints Pain is under control with oral meds, Motrin and Tylenol only, does not need narcotics No CP/ SOB/ Dizziness/ N&V/ VB/ Leg pain OOB to BR and hallway many times Tolerating regular diet Flatus +, voiding normally No VB Vital Signs Temp Pulse Resp BP Pulse Ox O2 Del Method 12/15/24 23:30 CPAP 12/15/24 22:46 37 C 81 20 149/69 H 96 Room Air 12/15/24 18:58 36.7 C 101 H 22 136/62 97 Room Air 12/15/24 16:00 36.8 C 92 H 18 140/82 96 Room Air PE: General: Alert, orientedx3, NAD CVS: S1S2 RRR Lungs: CTAB Abd: soft, NT, ND, BS+, Incisions C/D/I No VB Ext: NT, no edema/ erythema AP: 44 yo female s/p Robot assisted TLH, Josh salpingectomy , pod#1 VSS Afebrile doing well Continue to routine postop care Encourage PO intake, may ambulate Anticipate DC after breakfast Discussed when to call Results & Data Vital Signs (Past 12 Hours) Vital Signs Temp Pulse Resp BP Pulse Ox O2 Del Method 12/15/24 23:30 CPAP 12/15/24 22:46 37 C 81 20 149/69 H 96 Room Air 12/15/24 18:58 36.7 C 101 H 22 136/62 97 Room Air 12/15/24 16:00 36.8 C 92 H 18 140/82 96 Room Air
[2024-12-16] MEDS: PANTOprazole 40 MG TAB PO SCH (07:10)
[2024-12-16] MEDS ORDERED: hydroCHLOROthiazide 25 MG TAB PO SCH (09:00)
[2024-12-16] MEDS ORDERED: LOSARTAN POTASSIUM 50 MG TAB PO SCH (09:00)
[2024-12-16 09:33] VITALS: BP 135/65; PULSE 84; RESP 18; O2SAT 97
== END 2024-12-16 09:45 | disposition home or self-care (01) ==
LOC: ASU 06:06 → 4E1 06:06